=== PATIENT | male | born 1935 | race Caucasian/White ===

== ENCOUNTER 2021-03-28 13:01 | Emergency (ER) | payer OTHER ==
[~2021-03-28] VITALS: Ht 190.5 cm; Wt 66.2 kg
== END 2021-03-28 15:16 | disposition home or self-care (01) ==
LOC: ER 13:01
DX: K40.90 Unilateral inguinal hernia, without obstruction or gangrene, not specified as recurrent (principal)
CPT/HCPCS: 76870; 99284-25